=== PATIENT | male | born 1955 | race Caucasian/White ===

== ENCOUNTER 2024-09-04 12:53 | Outpatient (CLI) | payer MEDICARE, SELFPAY ==
--- NOTE | ~2024-09-04 | US_ITS ---
EXAMINATION: US retroperitoneal comp DATE: 09/04/2024 13:17 INDICATION: Stage III chronic kidney disease TECHNIQUE: Multiple ultrasound grayscale images of the kidneys were obtained. COMPARISON: None. FINDINGS: The right kidney measures 11.6 x 6.4 x 6.2 cm. The left kidney measures 13.4 x 5.6 x 6.0 cm. The kidn eys demonstrate normal echogenicity. There are a couple couple anechoic cysts at both the left and ri ght kidneys, the larger measuring up to 1.9 cm maximal diameter at the right kidney and 3.5 cm the le ft kidney. There is no hydronephrosis in either kidney. No stones identified. The bladder is normal. IMPRESSION: 1. Bilateral renal cysts. Otherwise normal kidneys without hydronephrosis. Reviewed, dictated and finalized at location A.
== END 2024-09-04 12:54 | disposition home or self-care (01) ==
LOC: MICIMG 12:56
PROVIDERS: PCP Internal Medicine; Visit Provider Specialist
DX: N18.30 Chronic kidney disease, stage 3 unspecified (principal); N28.1 Cyst of kidney, acquired
CPT/HCPCS: 76770